=== PATIENT | male | born 1945 | race Two or more races ===

== ENCOUNTER → 2025-03-11 | Outpatient (CLI) | payer MEDICARE, MEDICAID, SELFPAY ==
--- NOTE | 2025-03-11 12:00 | XR_ITS ---
Examination: Abdomen sonogram, complete Date and time of exam: March 11, 2025, 1202 hours INDICATIONS: Burning sensation in the abdomen and 20 years. Technique: Multiple real-time grayscale transabdominal sonographic images of the abdomen have been obtained. Findings: Distended gallbladder, no gallstones Normal gallbladder wall Common bile duct 0.9 cm no stones Pancreatic head 3.1 cm Aorta not enlarged Hepatomegaly 18.2 cm fatty infiltration Normal hepatopedal portal venous flow Patent IVC Right kidney 11.0 cm cortex 1.3 cm Left kidney 12.5 cm cortex 1.5 cm Moderate renal scarring Spleen 12.1 cm Impression: Negative for cholelithiasis Moderate hepatomegaly Bilateral renal cortical thinning and
--- NOTE | 2025-03-11 12:30 | XR_ITS ---
Examination: Arterial duplex lower extremity study. Date and time of exam: March 11, 2025, 1219 hours INDICATIONS: Numbness and loss of feeling in the lower extremities and feet beginning 2 years ago Findings: Duplex sonographic imaging of the lower extremity arteries using B-mode/Saunders scale imaging and Doppler spectral analysis and color flow. Ankle brachial indices have been recorded. Right common femoral artery demonstrates triphasic flow. Right superficial femoral artery demonstrates biphasic flow. Right popliteal artery demonstrates triphasic flow. Right posterior tibial artery demonstrated monophasic flow. Right ankle/brachial index is 0.9. Left common femoral artery demonstrates biphasic flow. Left superficial femoral artery demonstrates monophasic flow. Left popliteal artery demonstrates monophasic flow. Left posterior tibial artery demonstrated monophasic flow. Left ankle/brachial index is 0.8. Impression: Significant bilateral peripheral obstructive arterial disease, consider correlation with CTA abdominal aorta iliofemoral runoff post intravenous contrast
== END | disposition home or self-care (01) ==
PROVIDERS: PCP Physician Assistant; Referring Provider Internal Medicine; Visit Provider Internal Medicine
DX: R16.0 Hepatomegaly, not elsewhere classified (principal)
CPT/HCPCS: 76700; 93925